=== PATIENT | female | born 1980 | race Caucasian/White ===

== ENCOUNTER 2019-04-19 14:31 | Emergency (ER) | payer MEDICARE, OTHER ==
[2019-04-19 14:38] VITALS: RESP 18; TEMP 98.8
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
[2019-04-19 16:05] VITALS: BP 122/79; PULSE 95
== END 2019-04-19 16:02 | disposition home or self-care (01) ==
LOC: EC 14:31
DX: S13.4XXA Sprain of ligaments of cervical spine, initial encounter (principal); V49.9XXA Car occupant (driver) (passenger) injured in unspecified traffic accident, initial encounter; Y92.410 Unspecified street and highway as the place of occurrence of the external cause; Y93.89 Activity, other specified
CPT/HCPCS: 70450; 72125; 99284